=== PATIENT | male | born 1940 | race Caucasian/White ===

== ENCOUNTER → 2020-08-13 | Outpatient (CLI) | payer MEDICARE ==
[~2020-08-13] MED LIST: ASPI-963 PO; CARV3.122 PO; DOXA2TAB9 PO; LISI5TAB7 PO; VISIPAQUE 320 MG/ML, 150ML BOTTLE ONE; VITAMIN D PO
== END | disposition home or self-care (01) ==
LOC: CVU 09:29
PROVIDERS: ATTEND Internal Medicine Cardiovascular Disease
DX: I35.0 Nonrheumatic aortic (valve) stenosis (principal); I10 Essential (primary) hypertension; I25.10 Atherosclerotic heart disease of native coronary artery without angina pectoris; I70.0 Atherosclerosis of aorta; I65.23 Occlusion and stenosis of bilateral carotid arteries
CPT/HCPCS: 71275; 74174; 93880; Q9967

== ENCOUNTER → 2020-10-13 | Outpatient (CLI) | payer MEDICARE ==
[~2020-10-13] MED LIST changes: +ALFU10TA PO; +ATOR40TA78 PO; +CARV6.252 PO; +CLOP75TA52 PO; +CYCL5TAB PO; +METF500T17 PO; +PANT40TA6 PO; +UMEC1DIS INH; -VISIPAQUE 320 MG/ML, 150ML BOTTLE ONE
== END | disposition home or self-care (01) ==
LOC: CVU 10:29
PROVIDERS: ATTEND Internal Medicine Cardiovascular Disease
DX: Z01.810 Encounter for preprocedural cardiovascular examination (principal); I34.0 Nonrheumatic mitral (valve) insufficiency; I65.23 Occlusion and stenosis of bilateral carotid arteries; Z95.2 Presence of prosthetic heart valve
CPT/HCPCS: 93306; 93356